=== PATIENT | male | born 1950 | race Caucasian/White ===

== ENCOUNTER 2017-05-08 01:23 | Day surgery (SDC) | payer MEDICARE, BC ==
--- NOTE | 2017-05-05 14:49 | EKG ---
FACILITY: [facility] [place] PATIENT NAME: ANNAMARIA REYNOLDS : [id number] MR: [id number] V: [id number] EXAM DATE: ORDERING PHYSICIAN: YOEL SHARMA TECHNOLOGIST: SIMI Jesus Reason : PRE-OP Blood Pressure : / mmHG Vent. Rate : 099 BPM Atrial Rate : 099 BPM P-R Int : 160 ms QRS Dur : 082 ms QT Int : 336 ms P-R-T Axes : 059 042 072 degrees QTc Int : 431 ms Normal sinus rhythm Nonspecific ST and T wave abnormality Abnormal ECG No previous ECGs available Confirmed by ROS SHELTON ([id number]) on 05/06/2017 4:08:59 AM Referred By: ZACHARY Confirmed By:ROS SHELTON
[2017-05-05 15:07] LABS: PLATELET COUNT, AUTOMATED 147 K/uL (150-450)
--- NOTE | 2017-05-05 15:46 | RADIOLOGY IMAGING REPORT ---
FACILITY: [facility] PATIENT NAME: Matthew Valiente : 1950 MR: [id number] V: [id number] EXAM DATE: ORDERING PHYSICIAN: YOEL SHARMA TECHNOLOGIST: Location: [facility] Patient: Matthew Valiente : 1950 Visit/Account:[id number] Date of Sevice: 05/05/2017 Exam type: CHEST PA AND LAT History: Preop no current chest complaints Comparison: None. Findings: There are hypoventilatory changes from a limited inspiratory effort. There is no evidence of acute a ppearing infiltrates, pleural effusions or overt primary edema. No evidence of a pneumothorax or pne umomediastinum. The cardiac silhouette is normal in size. IMPRESSION: 1. No acute cardiac from a process is seen Hypoventilatory changes from a limited inspiratory effort Report Dictated By: Annette Michaels MD at 05/05/2017 3:41 PM Report E-Signed By: Annette Michaels MD at 05/05/2017 3:43 PM WSN:[email or web address]
--- NOTE | 2017-05-07 15:15 | HISTORY AND PHYSICAL ---
DATE OF ADMISSION: May 08, 2017 CHIEF COMPLAINT Elevated PSA. HISTORY OF PRESENT ILLNESS The patient is a 66-year-old white gentleman who was referred to the Urology Clinic by Tonja Nascimento for an elevated PSA. He had a PSA of 4.1 in January 2016, followed by a PSA of 3.7 with 15% free PSA in March 2016. A May PSA was 3.9. He subsequently underwent transrectal biopsy in July 2016. At this time, 12 cores were obtained which failed to reveal evidence of cancer. He had a prostatic volume of 52 with a PSA density of 0.07. A ConfirmMDx test was performed on that biopsy tissue which showed three positive cores for one gene in each core for methylation which resulted in a likelihood of having less than or equal to 6 Calvin score cancer of 19% and a 10% likelihood of detecting Lillie score greater than or equal to 7 cancer. This was followed by a PCA3 test which was performed in December, which returned elevated at 39. Given these findings, it was recommended he undergo a second saturation transrectal ultrasound biopsy. Other options of prostate health index and multiparametric MRI were also discussed. The patient is currently is scheduled for a screening colonoscopy by Dr. Lopez. This will be performed concurrently at this anesthesia. PAST MEDICAL HISTORY 1. Type 2 diabetes. 2. Hypercholesterolemia. 3. Hypertension. 4. Degenerative joint disease. 5. Benign prostatic hyperplasia. 6. Elevated PSA. PAST SURGICAL HISTORY 1. Right knee scope. 2. Shoulder surgery. 3. Bilateral cataracts. CURRENT MEDICATIONS 1. Aspirin. 2. Lipitor. 3. Celebrex. 4. Insulin. 5. Lisinopril. 6. Hydrochlorothiazide. 7. Metformin. 8. Tamsulosin. ALLERGIES PENICILLIN. FAMILY HISTORY Positive for lung, breast, brain, and liver cancer in first-degree relatives. SOCIAL HISTORY The patient lives in [place], [place], and is . REVIEW OF SYSTEMS The patient denies shortness of breath, chest pain, gross hematuria, productive cough, fever, chills, chronic headaches, weakness, or bleeding disorder. PHYSICAL EXAMINATION GENERAL: The patient is a well-developed, well-nourished, white male in no acute distress. HEENT: Normocephalic, atraumatic. CHEST: Clear to auscultation bilaterally. CARDIOVASCULAR: Regular rate and rhythm. ABDOMEN: Soft, nontender. No masses are palpated. GENITOURINARY: Exam is deferred to the OR. EXTREMITIES: Without clubbing, cyanosis, or edema. NEUROLOGIC: Nonfocal. IMPRESSION A 66-year-old white male with a history of elevated prostate-specific antigen with a positive ConfirmMDx and a PCA3 test with one negative biopsy performed in July of this past year. He also has a strong family history for cancers in his first-degree relatives, but no one with prostate cancer. He is also scheduled for screening colonoscopy by Dr. Lopez. PLAN We will perform transrectal ultrasound saturation biopsy of prostate following colonoscopy by Dr. Lopez. TRACY
[2017-05-08] VITALS (7 sets, daily range): BP systolic 126–140; BP diastolic 83–93
[~2017-05-08] VITALS: Ht 181.6 cm; Wt 99.3 kg
[~2017-05-08 01:23] MED LIST: ASPI-1471 PO; ATOR40TA69 PO; BLOO-1492 MC; CELE-1 PO; CETI-176 PO; FLU60SYR30 IM ONLY; GLIM1TAB25 PO; GLIM2TAB43 PO; HYDR-3140 PO; HYDR-4225 PO; HYDR30CR10 TP; IBU800 PO; INSU100I10 SUBQ; INSU100I30 SQ; LINA145C PO; LISI-351 PO; MELO-207 PO; METF-420 PO; METH4TAB66 PO; NEED-498 MC; PAN40 PO; PNEI IJ; PNEU0.5D3 IM; PRAV20TA66 PO; PRAV40TA77 PO; SIL50 PO; SITA100T PO; TAMS0.4C70 PO; ZIAC PO; ZOST19404 SQ
[2017-05-08] MEDS ORDERED: LEVOFLOXACIN/D5W*500 MG/100 ML 100 ML IVPB ONE (07:50)
[2017-05-08] MEDS ORDERED: MIDAZOLAM 2 MG/2 ML VIAL IVP PRN (07:50)
[2017-05-08] MEDS ORDERED: LIDOCAINE/SOD BICARB 8.4% SYR ID ONE (07:50)
[2017-05-08] MEDS ORDERED: NORMOSOL R SOLN(*) 1000 ML BAG 1,000 ML IV PRN (07:50)
[2017-05-08] MEDS ORDERED: FAMOTIDINE 20 MG TAB PO ONE (07:50)
[2017-05-08] MEDS ORDERED: fentaNYL CITR 100 MCG/2 ML AMP ONE (07:57)
[2017-05-08] MEDS ORDERED: LIDOCAINE 2% IV 100 MG/5ML SYR ONE (07:58)
[2017-05-08] MEDS ORDERED: GENTAMICIN 80 MG/2 ML VIAL ONE (08:02)
[2017-05-08] MEDS ORDERED: PROPOFOL EMUL(*) 10MG/ML 20 ML 20 ML ONE (08:03)
--- NOTE | 2017-05-08 09:21 | Post Operative Progress Note ---
Post Operative Progress Note Date: May 08, 2017 Time: 10:02 Surgeon: anthony Anesthesia: dr arevalo Pre-Op Diagnosis: screening colonoscopy Post-Op Diagnosis: 2 mm polyp in cecum Procedure(s): colonoscocpy with polypectomy IRVING DUGAN MD May 08, 2017 09:21
[2017-05-08] MEDS ORDERED: ONDANSETRON 4 MG/2 ML VIAL ONE (09:22)
[2017-05-08] MEDS ORDERED: PROMETHAZINE 25 MG/ML 1 ML AMP ONE (10:19)
[2017-05-08] MEDS ORDERED: LEVO-85 PO (10:42)
--- NOTE | 2017-05-08 11:39 | RADIOLOGY IMAGING REPORT ---
[place] [facility] [place] NAME: Matthew Valiente : 1950 MR: [id number] V: [id number] EXAM DATE: ORDERING PHYSICIAN: YOEL ROSAS TECHNOLOGIST: [place] [facility] [place] : 1950 Visit/Account:[id number] Date of Sevice: 05/08/2017 Exam type: PROSTATE BIOPSY History: Abnormal prostate Comparison: None. Findings: The prostate biopsy was performed by Dr. Rosas. Sonographic assistance was provided. Please see Dr Kye Rosas's note for further details IMPRESSION: 1. As above Report Dictated By: Annette Michaels MD at 05/08/2017 11:31 AM Report E-Signed By: Annette Michaels MD at 05/08/2017 11:34 AM WSN:[email or web address]
--- NOTE | 2017-05-08 15:36 | OPERATIVE REPORT 1 ---
EVENT DATE: May 08, 2017 SURGEON: Misbah Lopez MD ANESTHESIOLOGIST: Bunny Ambriz MD ANESTHESIA: General. PREOPERATIVE DIAGNOSIS Screening colonoscopy. POSTOPERATIVE DIAGNOSIS A 2 mm polyp in the cecum. PROCEDURE PERFORMED Colonoscopy with polypectomy. DESCRIPTION OF PROCEDURE The patient was placed in the supine position and given general anesthetic. The rectal exam was unremarkable. A flexible colonoscope was inserted and advanced to the cecum. He had an excellent bowel prep. Ileocecal valve and base of the cecum were identified. In the cecum, he had a small, 2 mm projection. This was removed with a couple of bites with the cold cup. The rest of the cecum, right colon, transverse, descending, or sigmoid colon were normal. Care was taken to look behind the haustral folds. The sigmoid colon was normal. The rectum was normal. The scope was retroflexed. That appeared to be normal. The patient will require repeat colonoscopy in five years if that polyp is adenomatous. TRACY
--- NOTE | 2017-05-08 16:05 | OPERATIVE REPORT 1 ---
EVENT DATE: May 08, 2017 SURGEON: Jarret Rosas MD ANESTHESIOLOGIST: Bunny Ambriz MD ANESTHESIA: General anesthetic. PREOPERATIVE DIAGNOSIS Elevated prostate-specific antigen. POSTOPERATIVE DIAGNOSIS Elevated prostate-specific antigen. PROCEDURES PERFORMED 1. Transrectal ultrasound of prostate. 2. Transrectal prostate biopsy times 36 using 18-gauge biopsy gun. 3. Transrectal ultrasound-guided needle biopsy of prostate. ESTIMATED BLOOD LOSS 10 mL INTRAVENOUS FLUIDS Crystalloid. DRAINS None. COMPLICATIONS None. PATHOLOGY 36 cores sent in 12 containers. CONDITION The patient was taken to the recovery room awake and in stable condition. STATEMENT OF MEDICAL NECESSITY The patient is a 66-year-old white male who has an elevated PSA. He underwent a biopsy in the Urology Clinic in July which was negative. His ConfirmMDx test was positive for approximately 20% chance of cancer, and he also had an elevated PCA3 test at 39. Given these findings, he is now brought to the operating room for saturation-type transrectal ultrasound biopsy. Dr. Lopez also has performed a screening colonoscopy, which he has completed before my procedure. DESCRIPTION OF OPERATION PERFORMED The patient was brought to the operating room where he was placed in the dorsal lithotomy position. Dr. Lopez then performed a screening colonoscopy. At the conclusion of the procedure, the patient was then placed in more extended dorsal lithotomy. A digital rectal exam was then performed which showed a normal sphincter tone. He had external hemorrhoids, and his prostate was approximately 45 g, smooth, without nodularity. At this point, the end-fire ultrasound probe was introduced into the patient's rectum atraumatically, and real-time ultrasound of the prostate was performed. Transportation Superintendent images were taken at the base, mid, apex, medial, and lateral, as well as the seminal vesicles. A prostatic measurement was performed, and he had a volume of approximately 55 mL. At this time, the ultrasound guidance indicator was placed on the screen, and this was used to perform transrectal ultrasound- guided needle biopsies of the prostate. A total of 36 cores was taken using the biopsy gun, starting at the right lateral base, proceeding across from right to left at the right medial base, left medial base, and left lateral base. The mid and apex were then performed. At each area, three biopsy cores were obtained and sent in one container. After a total of 36 biopsies were obtained, the ultrasound probe was removed. He was taken down from the dorsal lithotomy position. He was awakened in the operating room and taken to the recovery area in stable condition. PLAN We will allow the patient to be discharged home today on two more days of Levaquin. We will plan to see him in the Urology Clinic in seven to 14 days to review his pathology. He was also given instructions to return to the Emergency Room if he has a high fever, shaking chills, or any signs of early sepsis. TRACY
[2017-05-19] MEDS ORDERED: ATOR40TA69 PO (08:57)
== END 2017-05-08 11:20 | disposition home or self-care (01) ==
LOC: OR 01:23
PROVIDERS: ATTEND Urology
DX: Z12.11 Encounter for screening for malignant neoplasm of colon (principal); D12.0 Benign neoplasm of cecum; R97.20 Elevated prostate specific antigen [PSA]; I10 Essential (primary) hypertension; E11.9 Type 2 diabetes mellitus without complications
CPT/HCPCS: 00811; 36415; 36416; 45380; 55700; 71046; 76942; 81001; 82948; 85025; 88305; 88344; 93005; A9270; G0103; J1956; J2001; J2405; J2550; J2704; J3010; 82310; 82374; 82435; 82565; 82947; 84132; 84153; 84295; 84520; J1580

== ENCOUNTER → 2017-05-29 | Outpatient (CLI) | payer MEDICARE, BC ==
[~2017-05-29] MED LIST changes: +LEVO-85 PO
== END ==
LOC: LAB 13:53
PROVIDERS: ATTEND Nurse Practitioner Family
DX: E11.9 Type 2 diabetes mellitus without complications (principal); E78.5 Hyperlipidemia, unspecified; I10 Essential (primary) hypertension
CPT/HCPCS: 36415; 83036

== ENCOUNTER 2017-07-22 11:51 | Outpatient (RCR) | payer MEDICARE, BC ==
[~2017-07-22 11:51] MED LIST changes: -METF-420 PO; +METF-421 PO
[2017-07-23] MEDS ORDERED: INSU100I30 SQ (11:39)
[2017-08-04] MEDS ORDERED: METF-421 PO (15:56)
== END 2017-09-25 12:32 | disposition home or self-care (01) ==
LOC: RAON 11:51
PROVIDERS: ATTEND Radiology Radiation Oncology
DX: C61 Malignant neoplasm of prostate (principal); N40.0 Benign prostatic hyperplasia without lower urinary tract symptoms; E11.9 Type 2 diabetes mellitus without complications; E78.00 Pure hypercholesterolemia, unspecified; I10 Essential (primary) hypertension; Z79.82 Long term (current) use of aspirin; Z79.899 Other long term (current) drug therapy
CPT/HCPCS: 99202

== ENCOUNTER → 2017-08-25 | Outpatient (CLI) | payer MEDICARE, BC | LOC: LAB 08:33 | PROVIDERS: ATTEND Nurse Practitioner Family | DX: E11.65 Type 2 diabetes mellitus with hyperglycemia (principal) | CPT/HCPCS: 83036 ==

== ENCOUNTER → 2017-08-25 | Outpatient (CLI) | payer MEDICARE, BC | LOC: LAB 08:35 | PROVIDERS: ATTEND Urology | DX: C61 Malignant neoplasm of prostate (principal) | CPT/HCPCS: 36415; 84153 ==

== ENCOUNTER → 2017-12-04 | Outpatient (CLI) | payer MEDICARE, BC ==
[~2017-12-04] MED LIST changes: -METF-421 PO; +METF-452 PO
[2017-12-04 08:49] LABS: PLATELET COUNT, AUTOMATED 118 K/uL (150-450)
[2017-12-04 09:02] LABS: LDL CHOLESTEROL 63 mg/dl
== END ==
LOC: LAB 08:08
PROVIDERS: ATTEND Nurse Practitioner Family
DX: E78.5 Hyperlipidemia, unspecified (principal); E11.65 Type 2 diabetes mellitus with hyperglycemia; I10 Essential (primary) hypertension
CPT/HCPCS: 36415; 82040; 82247; 82310; 82374; 82435; 82465; 82565; 82947; 83036; 83718; 84075; 84132; 84155; 84295; 84443; 84450; 84460; 84478; 84520; 85025

== ENCOUNTER 2018-01-06 11:30 | Outpatient (RCR) | payer MEDICARE, BC ==
[~2018-01-06 11:30] MED LIST changes: +FLU180SY11 IM
--- NOTE | 2018-01-06 20:46 | ONCOLOGY FOLLOW UP NOTE ---
EVENT DATE: January 06, 2018 REASON FOR EVALUATION Patient is here to go over his PSA and undergo clinical exam. Known history of prostate carcinoma, Coquille 6. Patient presently on active surveillance with Dr. Rosas in this clinic. HISTORY OF PRESENT ILLNESS This is my first visit with Mr. Valiente. He had previously been seen by Dr. Henry. He is a 67-year-old gentleman who had a PSA in the 3.9 to 4.1 range in March 2016. He underwent a transrectal biopsy in July 2016. Twelve core biopsies were negative at that time. He was advised to undergo repeat biopsy of the prostate on 05/08/17, at which time a Lillie 3 + 3 = 6 tumor was diagnosed in a single core occupying 5% of the biopsy volume. The patient opted for surveillance at this time with his intent to proceed with the radiation option with external beam or seeding implant if there is transformation to a 7 or progressively rising PSA. Voiding function remains fairly stable and nocturia one to three based on fluid intake. Patient did discuss extensively with me some muscle aches and pains he is experiencing this last year. In fact, he has had eight years of left shoulder pain relating to a prior injury. He was also lifting a trash bag recently and aggravated the pain. He did see Tonja Nascimento and was put on a Medrol Dosepak. This helped, but did not fully take away his pain. He does monitor his blood glucose levels carefully while he is on the steroids briefly since he has a history of type 2 diabetes. Patient also has some lower back pain which is long-standing. He did a physical therapist this morning and will be followed up with the [facility] shortly for their assessment as well. PSA was obtained prior to this appointment. This was elevated slightly at 4.9 ng/mL on 12/29/17, drawn at the hospital. This was compared to a prior value in August of 3.98. MEDICATIONS 1. Tamsulosin 0.4 mg q. evening. 2. Lisinopril/hydrochlorothiazide 10/12.5 mg q. day. 3. Atorvastatin 40 mg a day. 4. Celebrex p.r.n. 5. Metformin 1000 mg b.i.d. 6. Insulin per schedule. 7. Linzess 145 mg q. day. 8. Aspirin 81 mg a day. ALLERGIES PENICILLIN. PAST MEDICAL HISTORY 1. Prostate carcinoma with history listed above. 2. Degenerative joint disease. 3. Type 2 diabetes. 4. Hypertension. 5. Hypercholesterolemia. SURGICAL HISTORY 1. Prostate biopsy times two. 2. Previous right knee scope. 3. Shoulder surgery. 4. Cataract surgery. SOCIAL HISTORY Patient is retired. 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 He enjoys walking. Nonsmoker. FAMILY HISTORY Notable for mother with lung carcinoma in her 80s. Sister had some type of liver carcinoma and in her 50s. Mother in her 80s. She had breast cancer. Father had some type of brain tumor and at age 66. PHYSICAL EXAMINATION GENERAL: A 57-year-old gentleman of medium build. VITAL SIGNS: BP 129/85, pulse 99. Weight 245. LUNGS: Clear bilaterally. LYMPHATICS: No lymphadenopathy. HEART: Heart sounds regular. ABDOMEN: Soft. RECTAL: Exam was performed. Medium size prostate which is slightly enlarged. No discrete nodularity noted. No tenderness noted. EXTREMITIES: No edema or cyanosis. NEUROLOGIC: Intact. MUSCULOSKELETAL: No pain on light percussion of the spine. IMPRESSION AND PLAN A 67-year-old gentleman with low-volume Coquille 6 adenocarcinoma of the prostate on one biopsy only. He is undergoing active surveillance. He will see Dr. Rosas in March. He is agreeable to biopsy at a later point to monitor him for any transformation to a Lilile 7 carcinoma. He is also agreeable to therapy if his PSA progressively rises over a time course of six to 12 months. All questions were answered to his satisfaction over a 45-minute appointment this morning. I will release him from the Radiation Oncology Clinic at this time, but I will be happy to see him in the future if he needs our services. He will continue regular followup with Dr. Rosas per schedule. ADDENDUM At the patient's request, I did place him on a three-day course of Decadron 8 mg b.i.d. with food. Thereafter, he will continue his ibuprofen and be assessed by Orthopedics and PT. The pain does not sound malignant and appears to be related to prior injury. From his previous Oncotype DX score and genomics, his probability of transformation to a Coquille 7 tumor is about 10% at this juncture. [facility]
[2018-01-26] MEDS ORDERED: METF-452 PO (14:27)
[2018-01-26] MEDS ORDERED: TAMS0.4C70 PO (14:27)
== END 2018-01-28 12:49 | disposition home or self-care (01) ==
LOC: RAON 11:30
PROVIDERS: ATTEND Radiology Radiation Oncology
DX: C61 Malignant neoplasm of prostate (principal)
CPT/HCPCS: 36415; 84153; G0463; 99212

== ENCOUNTER → 2018-03-05 | Outpatient (CLI) | payer MEDICARE, BC | LOC: LAB 15:27 | PROVIDERS: ATTEND Urology | DX: C61 Malignant neoplasm of prostate (principal) | CPT/HCPCS: 36415; 84153 ==

== ENCOUNTER → 2018-03-24 | Outpatient (CLI) | payer MEDICARE, BC | LOC: LAB 07:35 | PROVIDERS: ATTEND Nurse Practitioner Family | DX: E11.65 Type 2 diabetes mellitus with hyperglycemia (principal); I10 Essential (primary) hypertension | CPT/HCPCS: 36415; 82040; 82247; 82310; 82374; 82435; 82565; 82947; 83036; 84075; 84132; 84155; 84295; 84450; 84460; 84520 ==

== ENCOUNTER 2018-03-25 14:30 | Outpatient (RCR) | payer MEDICARE, BC ==
--- NOTE | 2018-01-06 17:40 | PT INITIAL EVALUATION ---
MEDICAL DIAGNOSIS: R29.898 L LE weakness, R26.89 Balance Disorder TREATMENT DIAGNOSIS: M53.2X6 Lumbar instability M51.06 Lumbar spondylosis with myelopathy DATE OF ONSET: 03/03/13 SUBJECTIVE: Matthew Valiente presents to PT for insidious weakness in his LE's, altered balance without falls and LBP with sitting more than 30 minutes. LBP is bad with trips over two hours. Oswestry Disability Index 20%. He denies radicular symptoms. Walking is pain free, but he has discordant gait and his notes he's slow. Pain location is L-S and described as ache. Pain scale is 2-7 on a ten point pain scale. Pain is worse with sitting and better with walking. REHAB PROBLEM LIST: Increased Pain Decreased ROM Impaired Bed Mobility Decreased Strength Impaired Transfers Decreased Endurance Decreased Balance Decreased Mobility Decreased Gait PREVIOUS MEDICAL HISTORY: Elevated PSA, actively being monitored, IDDM 7 years, LBP since early , with 2-3 times per year LBP flare with running, and these flares stopped when he stopped running, cataracts repaired 2016, L hip to waist pain from 06/2017 to 11/2017, resolved, R shoulder surgery in 1988, R knee surgery 2009 cervical pinched nerve, L plantar fasciitis resolved with Good Feet OTC orthotics. 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 Lives with his , independent in all ADL's. OBJECTIVE: Posture: Cavus feet, heels 8" apart, flattened lumbar curve with question of step off. [place] feet have a tyra appearance. ROM: AROM lumbar spine flexion WNL, extension 50%, SB B WNL. Hip PROM WNL R, L IR 30 deg., ER 65 deg., no LBP. Strength: Quads 40# R, 60# L, B ankle DF, peroneals 4-/5, PF R 3+/5, L 4-/5. Palpation: Prone: Step off L3/4/5 in relation to sacrum. Plantar fascia is pain free with palpation. Sensation: [place] monofilaments: No protective sensation L4 B at the shins and plantar heels "K" 4.56, reduced protective sensation plantar surface B fore feet "G" 3.84. Special Tests: Negative SLR and femoral nerve stretch tests for radicular symptoms. Hip OZZIE full and pain free B. Hip scour B pain free, tight lateral and posterior hips. Mobility: Slow supine/prone, supine/sit, due to stiff back per Tim, independent. Gait: Tim ambulates with R L3/4 rapid lateral lumbar shift at R heel strike, mild R foot drop, shorter R step length and early heel off, reduced L WS in L stance, gait speed limited community ambulator. Balance: Narrow base of support with eyes closed with retro balance loss after 8 seconds, on foam with eyes closed increased postural sway and LOB retro after 5 seconds. ASSESSMENT: Matthew Valiente presents with possible lumbar myelopathy affecting gait, balance, sensation, biswas muscle L4-S1 strength. His cavus feet presentation reminds me of a lower partial spinal cord appearance. I feel his presentation warrants a spinal consult. If you agree, we'll do conservative PT with lumbar stabilization exercises, gentle strengthening and stretching, balance exercises. Short Term Goals One month: B ankle DF 4/5, less R foot drop in gait, stable static posture on firm surfaces, low light setting. Two months: Tim ambulates at community ambulator speed, bed mobility and transfers quickly, demonstrates R push off in gait and no foot drop, demonstrates normal postural control and balance reactions on uneven surfaces. Patient's Goals Walk better and have better balance. PLAN: Patient to be seen for Strengthening/condition Ice/Heat Range of Motion Spinal Stabilization Stretching Electrical Stim Posture/Body mechanics Gait Trg/Balance Trg Home Exercise Program 2x/Week for 2 Months Thank you for this referral. If you have any questions, comments, or concerns about this report or plan, please contact me at . VENANCIOD
--- NOTE | 2018-02-04 11:12 | PT PLAN OF CARE ---
Physician: Roger Pinon MD Patient is being seen: 2x/week Therapist: Benedicto Rawls, PT, DPT Medical Diagnosis: neck pain Treatment Diagnosis: Lumbar pain, balance disorder, L LE weakness Date of Onset: 03/03/13 Date of Initial Evaluation: 01/06/18 Date patient was last seen: 02/03/18 Number of treatments: 9: Re-evaluation of his neck Number of cancellations/No shows: 0 INTERVENTIONS: Strengthening/condition Ice/Heat Range of Motion Spinal Stabilization Stretching Electrical Stim Posture/Body mechanics Gait Trg/Balance Trg Home Exercise Program GOALS: 2 weeks: He will demonstrate centralized neck pain to improve function and QOL. 4 weeks: He will demonstrate abolished neck pain to improve function and QOL. 8 weeks: Tim ambulates at community ambulator speed, bed mobility and transfers quickly, demonstrates R push off in gait and no foot drop, demonstrates normal postural control and balance reactions on uneven surfaces. 8 weeks: He will demonstrate abolished neck pain, increased strength, and return to prior level of function. PATIENT'S GOAL: Walk better and have better balance along with abolishing his neck pain Status of Patient's Goals: Progressing Patient Compliance: Good Prognosis: Fair Reasons for continuing therapy: This is a re-evaluation for Matthew Valiente. This is a re-assessment for his neck pain. He has been treated for his low back pain and would like to transition and to his neck pain. He reports that the neck pain is more bothersome than his low back pain and feels like he has a good handle on his specific exercise for his low back. He reports that the neck pain started approximately 2 months ago when he lifted a 39 gallon bag and has continually been bothersome and has not gotten better and would like to see if physical therapy can treat and resolve his neck pain. He rates her current neck pain to be 0-2/10. He reports increased pain with turning, lying, and bending. He reports that the pain is better with sitting. He denies dizziness, nausea, swallowing; however, he does report that he has tinnitus for a long time. He reports that he was given steroids over the last few months, which helps with the pain. He reports that his pain is on his L side from C6-7 to the tip of his shoulder. He demonstrated directional preference with extension based principles, which is a sign for an excellent prognosis. He is independent with his posture and his specific exercise. Furthermore, he demonstrated increased cervical AROM in all directions with normal end feels in all directions and decreased end range pain. However, we will continue to improve RTC and periscapular, core, and B LE's in the return to function phase once his neck pain has centralized and abolished. Posture: Cavus feet, heels 8" apart, flattened lumbar curve with question of step off. Tim's feet have a tyra appearance. ROM: AROM lumbar spine flexion WNL, extension 50%, SB B WBL. Hip PROM WNL R, L IR 30 deg., ER 65 deg., no LBP. Cervical AROM: protrusion, flexion, retraction, rotation R, and lateral flexion R: NIL with muscular end feel. extension: moderate restriction with painful end feel. lateral flexion L: moderate restriction with painful end feel. rotation: moderate restriction with painful end feel. Strength: Quads 40# R, 60# L, B ankle DF, peroneals 4-/5, PF R 3+/5, L 4-/5. Palpation: Prone: Step off L3/4/5 in relation to sacrum. Plantar fascia is pain free with palpation. Special Tests: Repeated cervical retraction: increased pain during the test and improved R rotation and centralizing his neck pain. Mobility: Mobility is slow but he is Independent. If you have any questions, please contact me at [phone]. Thank you, Benedcito Rawls, PT, DPT MTDD
--- NOTE | 2018-03-18 15:25 | PT PLAN OF CARE ---
Physician: Roger Pinon MD Patient is being seen: 2x/week Therapist: Benedicto Rawls, PT, DPT Medical Diagnosis: neck pain Treatment Diagnosis: Lumbar pain, balance disorder, L LE weakness Date of Onset: 03/03/13 Date of Initial Evaluation: 01/06/18 Date patient was last seen: 03-17-18 Number of treatments: 19: Number of cancellations/No shows: 0 INTERVENTIONS: Strengthening/condition Ice/Heat Range of Motion Spinal Stabilization Stretching Electrical Stim Posture/Body mechanics Gait Trg/Balance Trg Home Exercise Program GOALS: 2 weeks: He will demonstrate centralized neck pain to improve function and QOL. 4 weeks: He will demonstrate abolished neck pain to improve function and QOL. 8 weeks: Tim ambulates at community ambulator speed, bed mobility and transfers quickly, demonstrates R push off in gait and no foot drop, demonstrates normal postural control and balance reactions on uneven surfaces. 8 weeks: He will demonstrate abolished neck pain, increased strength, and return to prior level of function. PATIENT'S GOAL: Walk better and have better balance along with abolishing his neck pain Status of Patient's Goals: Progressing Patient Compliance: Good Prognosis: Fair Reasons for continuing therapy: This is a progress note for Matthew Valiente. He reports that he is doing well. He denies any shoulder pain, neck pain, or lumbar pain. He reports that he feels like he just needs to continue working on strength and core exercises to return to his prior level. He continues to demonstrate abolished neck pain, abolished radiating pain to the L shoulder, and abolished low back pain. He continues to be independent on his specific exercises. We continue to work toward improving core strength, BUE, and B LE strength so that we can return him to prior level of function. We will get him on a independent home exercise program for strengthening and ensure that he will be able to perform it at home in the next week and then discharge to [facility]. Posture: Cavus feet, heels 8" apart, flattened lumbar curve with question of step off. Tim's feet have a tyra appearance. ROM: AROM lumbar spine flexion WNL, extension 0%, SB B WBL. Cervical AROM: protrusion, flexion, retraction, rotation R, and lateral flexion R: NIL with muscular end feel. extension: NIL with normal end feel. lateral flexion L: NIL with normal end feel. rotation: NIL with normal end feel. Strength: Quads 60# R, 60# L, B ankle DF, peroneals 4/5, PF R 4-/5, L 4/5. Special Tests: Repeated cervical retraction: increased pain during the test and improved R rotation and centralizing his neck pain. Mobility: Mobility is slow but he is Independent. If you have any questions, please contact me at [phone]. Thank you, Benedicto Rawls, PT, DPT VENANCIOD
--- NOTE | 2018-03-25 16:25 | PT PLAN OF CARE ---
Physician: Roger Pinon MD Patient is being seen: 2x/week Therapist: Benedicto Rawls, PT, DPT Medical Diagnosis: neck pain Treatment Diagnosis: Lumbar pain, balance disorder, L LE weakness Date of Onset: 03/03/13 Date of Initial Evaluation: 01/06/18 Date patient was last seen: 03-25-18 Number of treatments: 22 Number of cancellations/No shows: 0 INTERVENTIONS: Strengthening/condition Ice/Heat Range of Motion Spinal Stabilization Stretching Electrical Stim Posture/Body mechanics Gait Trg/Balance Trg Home Exercise Program GOALS: 2 weeks: He will demonstrate centralized neck pain to improve function and QOL. 4 weeks: He will demonstrate abolished neck pain to improve function and QOL. 8 weeks: Tim ambulates at community ambulator speed, bed mobility and transfers quickly, demonstrates R push off in gait and no foot drop, demonstrates normal postural control and balance reactions on uneven surfaces. 8 weeks: He will demonstrate abolished neck pain, increased strength, and return to prior level of function. PATIENT'S GOAL: Walk better and have better balance along with abolishing his neck pain Status of Patient's Goals: Met Patient Compliance: Good Prognosis: Fair Reasons for continuing therapy: This is a discharge note for Matthew Valiente. He reports that he is doing well. He denies any low back pain and cervical neck pain and states that he feels like he is independent on his home exercise program. He demonstrates abolished neck pain and low back pain, abolished radiating pain into the L shoulder or to his buttock, he demonstrates increased core and B LE strength along with RTC and periscapular strength, increased cervical and lumbar trunk AROM in all directions with normalized end feels, and is independent on his home exercise program to continue to increase strength, endurance, gait mechanics, balance, and is independent with how to prevent reoccurrences with neck and low back regions. He has met all of his goals and as a result, he will be discharged from PT to [facility]. Posture: Cavus feet, heels 8" apart, flattened lumbar curve with question of step off. Tim's feet have a tyra appearance. ROM: AROM lumbar spine flexion WNL, extension 0%, SB B WBL. Cervical AROM: protrusion, flexion, retraction, rotation R, and lateral flexion R: NIL with muscular end feel. extension: NIL with normal end feel. lateral flexion L: NIL with normal end feel. rotation: NIL with normal end feel. Strength: Quads 60# R, 60# L, B ankle DF, peroneals 4/5, PF R 4/5, L 4/5. Special Tests: Repeated cervical retraction: increased pain during the test and improved R rotation and centralizing his neck pain. Mobility: Mobility is slow but he is Independent. If you have any questions, please contact me at [phone]. Thank you, Benedicto Rawls, PT, DPT MTDD
== END 2018-03-25 18:00 | disposition home or self-care (01) ==
LOC: PT 14:30
PROVIDERS: ATTEND Nurse Practitioner Family
DX: M53.2X6 Spinal instabilities, lumbar region (principal); M51.06 Intervertebral disc disorders with myelopathy, lumbar region; R29.898 Other symptoms and signs involving the musculoskeletal system; R26.89 Other abnormalities of gait and mobility
CPT/HCPCS: 97163

== ENCOUNTER → 2018-05-06 | Outpatient (CLI) | payer MEDICARE, BC | LOC: LAB 09:11 | PROVIDERS: ATTEND Urology | DX: C61 Malignant neoplasm of prostate (principal) | CPT/HCPCS: 36415; 84153 ==

== ENCOUNTER → 2018-05-14 | Outpatient (REF) | payer MEDICARE, BC | LOC: ZZSENDIN 11:27 | PROVIDERS: ATTEND Urology | DX: N41.1 Chronic prostatitis (principal) | CPT/HCPCS: 88305; 88344 ==

== ENCOUNTER → 2018-06-23 | Outpatient (CLI) | payer MEDICARE, BC ==
[2018-06-23 09:33] LABS: LDL CHOLESTEROL 83 mg/dl
== END ==
LOC: LAB 07:48
PROVIDERS: ATTEND Nurse Practitioner Family
DX: E11.65 Type 2 diabetes mellitus with hyperglycemia (principal); I10 Essential (primary) hypertension; E78.5 Hyperlipidemia, unspecified
CPT/HCPCS: 36415; 82040; 82247; 82310; 82374; 82435; 82465; 82565; 82947; 83036; 83718; 84075; 84132; 84155; 84295; 84443; 84450; 84460; 84478; 84520

== ENCOUNTER → 2018-08-18 | Outpatient (CLI) | payer MEDICARE, BC ==
[~2018-08-18] MED LIST changes: +TAMS0.4C25 PO
== END ==
LOC: LAB 08:34
PROVIDERS: ATTEND Urology
DX: C61 Malignant neoplasm of prostate (principal)
CPT/HCPCS: 36415; 84153

== ENCOUNTER → 2018-09-15 | Outpatient (CLI) | payer MEDICARE, BC | LOC: LAB 08:04 | PROVIDERS: ATTEND Nurse Practitioner Family | DX: E11.65 Type 2 diabetes mellitus with hyperglycemia (principal); E78.5 Hyperlipidemia, unspecified; I10 Essential (primary) hypertension | CPT/HCPCS: 36415; 82728; 83036; 83540; 83550; 87340; G0472; 82040; 82247; 82310; 82374; 82435; 82565; 82947; 84075; 84132; 84155; 84295; 84450; 84460; 84520; 86803 ==

== ENCOUNTER → 2018-09-24 | Outpatient (CLI) | payer MEDICARE, BC ==
--- NOTE | 2018-09-24 10:13 | RADIOLOGY IMAGING REPORT ---
FAC[place] [facility] [place]IENT NAME: Matthew Valiente : 1950 MR: [id number] V: [id number] EXAM DATE: ORDERING PHYSICIAN: JERRI RUBIO TECHNOLOGIST: Location: [facility] [place] Patient: Matthew Valiente : 1950 Visit/Account:[id number] Date of Sevice: 09/24/2018 EXAMINATION: Ultrasound abdomen complete HISTORY: Elevated LFTs. COMPARISON: None. FINDINGS: Gallbladder: The neck of the gallbladder there is a 1.1 cm echogenic focus without shadowing likely representing a focus of sludge. No wall thickening, pericholecystic fluid or sonographic Garner sign. Liver: Measures up to 15.8 cm in length. Within the inferior left hepatic lobe there is a echogenic mass which measures approximately 1.9 x 2.3 x 2.0 cm. No internal vascular flow noted in this mass. This is nonspecific and could represent a hemangioma. No additional hepatic masses are seen. Common bile duct: Measures up to 3 mm in diameter. Pancreas: Poorly visualized and mildly echogenic. Right kidney: Measures 11.0 x 5.6 x 4.9 cm. Normal cortical thickness and corticomedullary different iation. No hydronephrosis. Upper abdominal aorta and IVC: Negative. Ascites: None. IMPRESSION: 1. Hyperechoic mass in the left hepatic lobe measures 2.3 cm. While nonspecific, this likely repres ents a hemangioma. 2. Small focus of sludge near the neck of the gallbladder. No evidence of cholecystitis or biliary d uctal dilatation. Report Dictated By: Baudilio Rueda MD at 09/24/2018 9:58 AM Report E-Signed By: Baduilio Rueda MD at 09/24/2018 10:06 AM WSN:[id number]
== END ==
LOC: US 00:23
PROVIDERS: ATTEND Nurse Practitioner Family
DX: K76.89 Other specified diseases of liver (principal)
CPT/HCPCS: 76705

== ENCOUNTER 2018-09-30 12:56 | Outpatient (RCR) | payer MEDICARE, BC ==
--- NOTE | 2018-09-30 14:46 | Medical Nutrition Therapy ---
Nutritional Education Nutrition Education Topic: Diabetic Nutrition Learning Readiness: Interested Teaching Methods: Discussion, Handout, Demonstration Response to Teaching: Verbalize understanding Teaching Recipient: Patient Nutrition Counseling: Placed CGM and provided instruction. Pt may have an issue being able to track data and do BG as needed for test. Pt states he is going OOT to deal with SILVA who is dying. Pt was willing to cont with test. F/u scheduled 10/06. REGINALDO COKER Sep 30, 2018 14:46
--- NOTE | 2018-09-30 14:50 | Medical Nutrition Therapy ---
Nutritional Education Nutrition Education Topic: Diabetic Nutrition Learning Readiness: Interested Teaching Methods: Discussion, Handout, Demonstration Response to Teaching: Verbalize understanding Teaching Recipient: Patient Nutrition Counseling: Placed CGM and provided instruction. Pt may have an issue being able to track data and do BG as needed for test. Pt states he is going OOT to deal with SILVA who is dying. Pt was willing to cont with test. F/u scheduled 10/06. CMG Insertion/Removal: Yes Nutrition Monitoring & Eval RD Patient Assessment Time: [address] Assessment Type: RD Education Nutritional Comment: Provided 45 bminutes education and insersion of CGM monitor. Copies To Copies to: JERRI RUBIO APRNP-C ; REGINALDO COKER Sep 30, 2018 14:50
--- NOTE | 2018-10-07 10:31 | Medical Nutrition Therapy ---
Nutritional Education Nutrition Education Topic: Diabetic Nutrition Learning Readiness: Interested Teaching Methods: Discussion, Handout Response to Teaching: Verbalize understanding Teaching Recipient: Patient Nutrition Counseling: Removed CGM, inputed data and reviewed report with pt. Data indicated pt is above desired BG range 76% wuit BG out of range 100% of the time following breakfast and dinner. Reviewed breakkast intake. Pt is eating high Gycemic index foods like harman crackers(77) ~ 6:00 am and oatmeal (55), fuit, nuts 8-9am. Recommend changing to a lower GI foods like breakfast sandwich. Recommended adding peanut butter to grah cracker to see if that improves. Recommend cutting back on portion size with oatmeal. Encouraged pt to discuss possible medication changes with PCP. Discussed how mealtime insulin may be an option especially with breakfast or alternative oral and injectable meds. Pt states he is tired all of the time and encouraged pt that fatique should improve when BG is in target range. CMG Insertion/Removal: Yes Nutrition Monitoring & Eval RD Patient Assessment Time: [address] Assessment Type: RD Education Nutritional Comment: Provided 120 minutes removal of CGM monitor, and inputting data. Provided 60 minutes education reviewing data with pt Copies To Copies to: JERRI RUBIO APRNP-C ; REGINALDO COKER Oct 07, 2018 10:31
[2018-10-09] MEDS ORDERED: CANA100T PO (10:46)
[2018-10-22] MEDS ORDERED: INSU100I30 SQ ×2 (07:59→11:04)
== END 2018-10-21 14:00 | disposition home or self-care (01) ==
LOC: DIET 12:56
PROVIDERS: ATTEND Nurse Practitioner Family
DX: Z71.3 Dietary counseling and surveillance (principal); E11.65 Type 2 diabetes mellitus with hyperglycemia
CPT/HCPCS: 95250